=== PATIENT | female | born 2000 | race Two or more races ===

== ENCOUNTER 2023-06-20 09:58 | Outpatient (CLI) | payer OTHER ==
[~2023-06-20 09:58] MED LIST: CEPHALEXIN750 MG PO; FOLIC ACID20 MG PO
== END 2023-06-20 09:59 | disposition home or self-care (01) ==
LOC: PRENATAL 09:58
PROVIDERS: ATTEND Obstetrics & Gynecology Maternal & Fetal Medicine
DX: O36.90X0 Maternal care for fetal problem, unspecified, unspecified trimester, not applicable or unspecified (principal); Z36 Encounter for antenatal screening of mother; Z36.82 Encounter for antenatal screening for nuchal translucency

== ENCOUNTER → 2023-10-10 10:41 | Outpatient (CLI) | payer OTHER ==
[~2023-10-10 10:41] MED LIST changes: +PRENATABS RX T1 EACH PO
== END | disposition home or self-care (01) ==
LOC: PRENATAL 10:41
PROVIDERS: ATTEND Obstetrics & Gynecology Maternal & Fetal Medicine
DX: O26.849 Uterine size-date discrepancy, unspecified trimester (principal); O43.893 Other placental disorders, third trimester; Z3A.28 28 weeks gestation of pregnancy

== ENCOUNTER 2023-10-14 18:47 | Emergency (ER) | payer OTHER ==
[~2023-10-14] VITALS: Ht 162.6 cm; Wt 76.2 kg
[2023-10-14 20:06] LABS: HEMATOCRIT 31.9 % (36.0-45.00); HEMOGLOBIN 11.2 g/dL (12.0-15.00); MEAN CELL VOLUME 87.6 fL (80.00-100.00); MEAN CORPUSCULAR HEMOGLOBIN 30.8 pg (27.00-32.0); MEAN CORPUSCULAR HGB CONC 35.2 g/dl (32.0-36.0); PLATELET COUNT 223 K/uL (150-450); RED BLOOD COUNT 3.65 M/uL (4.00-6.00); RED CELL DISTRIBUTION WIDTH 12.3 % (11.5-14.5)
[2023-10-14 20:32] LABS: INR 0.96; PARTIAL THROMBOPLASTIN TIME 25.1 SECONDS (22.0-34.0); PROTHROMBIN TIME 10.1 SECONDS (9.0-11.5)
[2023-10-14 20:38] LABS: PH,URINE 6.5 (5.0-8.0); URINE APPEARANCE Cloudy; URINE BILIRRUBIN Negative (NEGATIVE); URINE BLOOD Negative; URINE COLOR Yellow; URINE GLUCOSE Negative (NEGATIVE); URINE LEUKOCYTE Moderate; URINE NITRATE Negative; URINE PROTEIN Negative (NEGATIVE)
[2023-10-14 20:41] LABS: URINE BACTERIA 6230.3 uL (0.0-1933); URINE EPITHELIAL CELLS 38.1 uL (0.0-38.8); URINE RBC 3.8 uL (0.0-20.8); URINE WBC 264.2 uL (0.0-23.2)
[2023-10-14 20:52] LABS: ALBUMIN 2.8 gm/dL (3.4-5.0); BILIRUBIN TOTAL 0.25 mg/dL (0.3-1.2); CALCIUM 8.6 mg/dL (8.5-10.1); CREATININE SERUM 0.5 mg/dL (0.55-1.02); GFR 154.28; GLOBULINA 3.3 G/DL (2.4-3.5); POTASSIUM 3.71 mEq/L (3.5-5.1); TOTAL PROTEIN 6.1 gm/dL (6.4-8.2)
[2023-10-14 21:20] LABS: URINE YEAST FEW /hpf
== END 2023-10-15 00:51 | disposition home or self-care (01) ==
LOC: ER 18:48
PROVIDERS: General Practice
DX: R55 Syncope and collapse (principal); R53.1 Weakness; Z20.822 Contact with and (suspected) exposure to COVID-19

== ENCOUNTER → 2023-11-10 | Emergency (ER) | payer OTHER ==
[~2023-11-10] VITALS: Ht 162.6 cm; Wt 77.1 kg
[~2023-11-10] MED LIST changes: +GUAIFENESIN 200 MG/10 ML BLIST.PACK PO ONE
[2023-11-10 13:09] LABS: HEMATOCRIT 31.1 % (36.0-45.00); MEAN CELL VOLUME 86.1 fL (80.00-100.00); MEAN CORPUSCULAR HEMOGLOBIN 30.4 pg (27.00-32.0); MEAN CORPUSCULAR HGB CONC 35.3 g/dl (32.0-36.0); PLATELET COUNT 224 K/uL (150-450); RED BLOOD COUNT 3.61 M/uL (4.00-6.00); RED CELL DISTRIBUTION WIDTH 12.6 % (11.5-14.5)
== END | disposition home or self-care (01) ==
LOC: ER 12:15
PROVIDERS: General Practice
DX: O26.893 Other specified pregnancy related conditions, third trimester (principal); J00 Acute nasopharyngitis [common cold]; Z3A.32 32 weeks gestation of pregnancy; Z20.822 Contact with and (suspected) exposure to COVID-19

== ENCOUNTER → 2023-11-20 09:06 | Outpatient (CLI) | payer OTHER ==
[~2023-11-20 09:06] MED LIST changes: -GUAIFENESIN 200 MG/10 ML BLIST.PACK PO ONE
== END | disposition home or self-care (01) ==
LOC: PRENATAL 09:06
PROVIDERS: ATTEND Obstetrics & Gynecology Maternal & Fetal Medicine
DX: O26.843 Uterine size-date discrepancy, third trimester (principal); O36.8130 Decreased fetal movements, third trimester, not applicable or unspecified; O99.891 Other specified diseases and conditions complicating pregnancy; Z3A.34 34 weeks gestation of pregnancy

== ENCOUNTER 2023-12-26 13:15 | Inpatient (IN) | payer OTHER ==
[~2023-12-26] VITALS: Ht 162.6 cm; Wt 78.5 kg
[2024-01-01 16:25] VITALS: BP 106/54
[2024-01-01] MEDS ORDERED: RINGERS SOLUTION,LACTATED 1,000 ML IV SCH (16:45)
[2024-01-01 21:03] VITALS: BP 109/58
[2024-01-01 23:21] VITALS: BP 110/68
[2024-01-02] VITALS (7 sets, daily range): BP systolic 103–118; BP diastolic 54–66
[2024-01-02] MEDS ORDERED: MISOPROSTOL 25 MCG/4 ML GEL.W.APPL VAG ONE (08:15)
[2024-01-02] MEDS ORDERED: MORPHINE SULFATE 4 MG/ML CARTRIDGE IV NR (10:30)
[2024-01-02] MEDS ORDERED: MORPHINE SULFATE 4 MG/ML VIAL IV ONE (17:45)
[2024-01-02] MEDS ORDERED: PROMETHAZINE HCL 50 MG/ML AMPUL IM PRN (18:30)
[2024-01-02] MEDS ORDERED: MEPERIDINE HCL/PF 50 MG/ML VIAL IM PRN (18:30)
[2024-01-02] MEDS ORDERED: CEFAZOLIN SODIUM 1,000 MG VIAL IV ONE (19:15)
[2024-01-02] MEDS ORDERED: OXYTOCIN 10 UNITS/ML VIAL IV ONE (19:15)
[2024-01-02] MEDS ORDERED: ERYTHROMYCIN BASE OPHT 1GM EACH TUBE OP ONE (19:15)
[2024-01-03 01:21] VITALS: BP 96/60
[2024-01-03 06:11] LABS: HEMATOCRIT 27.3 % (36.0-45.00); MEAN CELL VOLUME 80.1 fL (80.00-100.00); MEAN CORPUSCULAR HGB CONC 34.2 g/dl (32.0-36.0); PLATELET COUNT 223 K/uL (150-450); RED BLOOD COUNT 3.41 M/uL (4.00-6.00); RED CELL DISTRIBUTION WIDTH 14.6 % (11.5-14.5)
[2024-01-03 06:18] LABS: HEMOGLOBIN 9.4 g/dL (12.0-15.00); MEAN CORPUSCULAR HEMOGLOBIN 27.5 pg (27.00-32.0)
[2024-01-03] MEDS ORDERED: OxyCODONE HCL/APAP UD (PERCOCET) PO PRN (08:00)
[2024-01-03] MEDS ORDERED: SIMETHICONE 125 MG CAPSULE PO SCH (09:00)
[2024-01-03] MEDS ORDERED: DOCUSATE SODIUM 100MG CAP PO SCH (09:00)
[2024-01-03] MEDS ORDERED: PNV,CALCIUM 72/IRON/FOLIC ACID 1 TAB TABLET PO SCH (09:00)
[2024-01-03 10:01] VITALS: BP 100/57; O2SAT 97
[2024-01-03 14:23] VITALS: BP 94/59; O2SAT 98
[2024-01-03 16:09] VITALS: BP 90/50
[2024-01-04 01:08] VITALS: BP 90/56
[2024-01-04 09:01] VITALS: BP 100/63
[2024-01-04 16:00] VITALS: BP 98/62
[2024-01-04] MEDS ORDERED: FAMOtidine 20 MG TABLET PO STA (20:49)
[2024-01-05 01:13] VITALS: BP 95/60
[2024-01-05 08:53] VITALS: BP 114/77
[2024-01-05] MEDS ORDERED: FAMOtidine 20 MG TABLET PO SCH (09:00)
== END 2024-01-05 14:40 | disposition home or self-care (01) | DRG 788 ==
LOC: OB/GYN 01-01 13:15 → LDR 01-01 16:25 → OB/GYN 01-01 16:25 → O/R 01-02 17:34 → OB/GYN 01-02 18:42
PROVIDERS: ADMIT Obstetrics & Gynecology; ATTEND Obstetrics & Gynecology
PROC: 3E0P7VZ Introduction of Hormone into Female Reproductive, Via Natural or Artificial Opening (ICD-10-PCS; 2024-01-01)
PROC: 4A1HXCZ Monitoring of Products of Conception, Cardiac Rate, External Approach (ICD-10-PCS; 2024-01-01)
PROC: 3E033VJ Introduction of Other Hormone into Peripheral Vein, Percutaneous Approach (ICD-10-PCS; 2024-01-02)
PROC: 10D00Z1 Extraction of Products of Conception, Low, Open Approach (ICD-10-PCS; principal; 2024-01-02 20:45)
DX: O33.8 Maternal care for disproportion of other origin (principal); Z3A.40 40 weeks gestation of pregnancy; Z37.0 Single live birth; Z20.822 Contact with and (suspected) exposure to COVID-19

== ENCOUNTER 2024-01-01 07:58 | Outpatient (CLI) | payer OTHER ==
[2024-01-01 07:24] VITALS: BP 117/69
[2024-01-01 07:45] VITALS: BP 117/69
[2024-01-01] MEDS ORDERED: RINGERS SOLUTION,LACTATED 1,000 ML IV SCH (08:30)
[2024-01-01] MEDS ORDERED: FLUCONAZOLE 150 MG TABLET PO ONE (08:30)
[2024-01-01 09:10] LABS: URINE APPEARANCE Cloudy; URINE BILIRRUBIN Negative (NEGATIVE); URINE BLOOD Small; URINE COLOR Yellow; URINE GLUCOSE Negative (NEGATIVE); URINE KETONE Negative (NEGATIVE); URINE LEUKOCYTE Large; URINE NITRATE Negative; URINE PROTEIN Negative (NEGATIVE)
[2024-01-01 09:14] LABS: HEMATOCRIT 35.8 % (36.0-45.00); MEAN CELL VOLUME 81.5 fL (80.00-100.00); MEAN CORPUSCULAR HEMOGLOBIN 27.4 pg (27.00-32.0); MEAN CORPUSCULAR HGB CONC 33.7 g/dl (32.0-36.0); PLATELET COUNT 279 K/uL (150-450); RED BLOOD COUNT 4.39 M/uL (4.00-6.00); RED CELL DISTRIBUTION WIDTH 14.5 % (11.5-14.5)
[2024-01-01 09:28] LABS: URINE BACTERIA 3057.9 uL (0.0-1933); URINE EPITHELIAL CELLS 90.2 uL (0.0-38.8); URINE WBC 76.9 uL (0.0-23.2)
[2024-01-01 09:46] LABS: ALBUMIN 2.9 gm/dL (3.4-5.0); BILIRUBIN TOTAL 0.42 mg/dL (0.3-1.2); CALCIUM 9.4 mg/dL (8.5-10.1); CREATININE SERUM 0.54 mg/dL (0.55-1.02); GFR 141.17; GLOBULINA 3.6 G/DL (2.4-3.5); POTASSIUM 4.45 mEq/L (3.5-5.1); TOTAL PROTEIN 6.5 gm/dL (6.4-8.2)
[2024-01-01 09:49] LABS: INR < 0.93; PARTIAL THROMBOPLASTIN TIME 25.4 SECONDS (22.0-34.0); PROTHROMBIN TIME 10.1 SECONDS (9.0-11.5)
[2024-01-01 10:27] LABS: URINE RBC 1.5 uL (0.0-20.8)
[2024-01-01 10:47] LABS: URINE YEAST FEW /hpf
[2024-01-01 11:39] VITALS: BP 96/52
[2024-01-01 15:03] VITALS: BP 106/54
== END 2024-01-01 16:24 | disposition still patient (30) ==
LOC: OBS/DEL 07:58
PROVIDERS: ATTEND Obstetrics & Gynecology
DX: O26.893 Other specified pregnancy related conditions, third trimester (principal); Z3A.40 40 weeks gestation of pregnancy